=== PATIENT | male | born 1930 | race Caucasian/White ===

== ENCOUNTER 2016-11-26 20:07 | Observation (INO) | payer MEDICARE, MEDICAID ==
[2016-11-26 20:07] VITALS: PULSE 79
[2016-11-26 22:48] LABS: BASO % 0.7 % (0.0-2.0); EOS # 0.1 K/uL (0.0-0.7); EOS % 1.2 % (0.0-4.0); HEMOGLOBIN 13.4 g/dL (12.0-18.0); LYMPH # 1.2 K/uL (1.0-4.3); LYMPH % 18.7 % (20.0-40.0); MEAN CELL VOLUME 85.5 fL (80.0-94.0); MEAN CORPUSCULAR HGB CONC 33.9 g/dL (33.0-37.0); MEAN PLATELET VOLUME 7.7 fL (7.2-11.7); MONO # 0.5 K/uL (0.0-0.8); MONO % 8.3 % (0.0-10.0); NEUT # 4.7 K/uL (1.8-7.0); NEUT % 71.1 % (50.0-75.0); NRBC % 0.1 % (0.0-2.0); RBC 4.61 Mil/uL (4.40-5.90); WHITE BLOOD COUNT 6.6 K/uL (4.8-10.8)
[2016-11-26 22:56] LABS: ALBUMIN 4.5 g/dL (3.5-5.0)
[2016-11-26 22:57] LABS: INR 1.4; PROTHROMBIN TIME 16.2 SECONDS (9.7-12.2)
[2016-11-26 22:59] LABS: GFR AFRICAN-AMERICAN > 60; GFR NON-AFRICAN AMERICAN > 60
[2016-11-26 23:00] LABS: ALB/GLOB RATIO 1.1 (1.0-2.1); ALT/SGPT 14 U/L (21-72); AST/SGOT 32 U/L (17-59); BLOOD UREA NITROGEN 17 mg/dL (9-20)
[2016-11-26 23:08] LABS: B-TYPE NATRIURETIC PEPTIDE 282 pg/mL (0-900); CK-MB 1.81 ng/mL (0.0-3.38)
--- NOTE | 2016-11-26 23:38 | C.PDOC ---
Time Seen by Provider: 11/26/16 21:43 Chief Complaint (Nursing): Chest Pain History Per: Patient, Family Onset/Duration Of Symptoms: Sudden Onset (Just [employer] CUT[employer]) Current Symptoms Are (Timing): Better Severity: Moderate Quality: Pressure Associated Symptoms: Nausea, Dyspnea, Diaphoresis Modifying Factors: Other Indicated Below Nitro Therapy Administered: 1, Per Own Supply, Complete Relief Additional History Per: Prior Records Past Medical History Reviewed: Historical Data, Nursing Documentation, Vital Signs Vital Signs: Last Vital Signs Temp Pulse 70 11/26/16 20:19 Resp 16 11/26/16 20:19 BP 140/90 11/26/16 20:19 Pulse Ox 100 11/26/16 23:39 - Medical History PMH: Atrial Fibrillation, CAD, Diabetes, HTN - [facility] Procedures INTRAOPER CHOLANGIOGRAM (10/29/14) LAPAROSCOPIC CHOLECYSTECTOMY (10/29/14) Family History: States: Unknown Family Hx - Social History Hx Tobacco Use: No Hx Alcohol Use: No Hx Substance Use: No - Immunization History Hx Tetanus Toxoid Vaccination: No Hx Influenza Vaccination: Yes Hx Pneumococcal Vaccination: No Review Of Systems Except As Marked, All Systems Reviewed And Found Negative. Constitutional: Negative for: Fever, Weakness Cardiovascular: Positive for: Chest Pain Respiratory: Negative for: Hemoptysis Gastrointestinal: Negative for: Vomiting, Abdominal Pain Musculoskeletal: Negative for: Neck Pain, Back Pain, Leg Pain Skin: Negative for: Rash Neurological: Negative for: Weakness, Numbness, Seizures, Altered Mental Status Physical Exam - Physical Exam Appears: Non-toxic, No Acute Distress Skin: Normal Color, Warm, Dry, No Rash Head: Atraumatic, Normacephalic Eye(s): bilateral: PERRL, EOMI Neck: Normal ROM, Supple Cardiovascular: Rhythm Regular Respiratory: Normal Breath Sounds, No Accessory Muscle Use Gastrointestinal/Abdominal: Soft, No Tenderness Back: No CVA Tenderness Extremity: Normal ROM, No Pedal Edema, No Calf Tenderness Neurological/Psych: Oriented x3, Normal Motor, Normal Sensation ED Course And Treatment - Laboratory Results Result Diagrams: 11/26/16 22:43 11/26/16 22:43 Lab Interpretation: No Acute Changes ECG: Interpreted By Me, Viewed By Me ECG Rhythm: Atrial Fibrillation, Nonspecific Changes ECG Interpretation: No Changes From Prior Rate From EC O2 Sat by Pulse Oximetry: 100 Pulse Ox Interpretation: Normal - Radiology CXR: Interpreted by Me, Viewed By Me CXR Interpretation: Yes: No Acute Disease Reassessment Condition: Improved Progress - Interventions Interventions:: Observation, Oxygen - Medications Administered Oral: Aspirin - Data Reviewed Data Reviewed: Lab, Diagnostic imaging, EKG, Old records - Continuity of Care Discussed patient case with:: Patient, Family-HIPPA compliant, Covering for PMD Disposition Discussed With : Lisandro Almodovar Comment: He accepted pt on his service and gave admitting orders to the nurse. Doctor Will See Patient In The: Hospital Counseled Patient/Family Regarding: Studies Performed, Diagnosis - Disposition Disposition: HOSPITALIZED Disposition Time: 00:09 Condition: FAIR - Clinical Impression Clinical Impression: Chest pain
[2016-11-27 02:31] VITALS: RESP 20
[2016-11-27 05:41] LABS: CK-MB 1.51 ng/mL (0.0-3.38)
--- NOTE | 2016-11-27 07:36 | CP.PCM.CON ---
Addendum entered and electronically signed by Inocente Dyer DO 11/27/16 10:08: as Per Dr. Kemp We will recommend adding 30mg Imdur daily to the patients current regimen He will f/u w/ Dr. Adkins on Wednesday at 10am Thank you. Original Note: <Inocente Dyer - Last Filed: 11/27/16 09:23> History of Present Illness - History of Present Illness History of Present Illness: Dr. Inocente Dyer PGY2 Note for Cardiology for Dr. Kemp W/ Sample Cutter Services offered in the hospital CC: Chest pain and dizziness This patient is an 86yo M w/ a pmhx of DM2, HTN, HLD, CAD, A-Fibb rate controlled and CHF (unknown systolic or diastolic, most likely systolic) who is coming to the hospital after he had chest pain 8/3 at 7pm and dizziness. The patient states he has never had pain like this before that was associated with dizziness. The patient denies diaphoresis, or vomiting, Denies LOC. He states he had chest pain like this "many years ago" that was associated with an IN. He denies all other symptoms; denies DOHERTY, current CP, SOB, abdominal pain, N/V/D, fevers/chills, dysuria/freq/urg, or lower extremity pain/swelling. Cath: 2-3 years ago; reportedly normal as per patient; will need collateral information Echo done 9-10 months ago; reportedly normal as per patient; will need collateral information PMhx: DM2, HTN, HLD, CAD, A-Fibb PSurghx: Cholycystectomy 2 years ago, Cath 2 years ago which was reportedly normal FamHx: Mom with HTN and DM, no history of cancer in the family Allergies: None Meds: Aspirin, Digoxin, Gabapentin, Metformin, Metoprolol, Nitro Patch, Onglyza , Simvastatin, Xarelto, Zoldipem Social: Social hookah smoker, denies EtOH or other illicit drugs; lives at home ; normally able to ambulate as much as needs without walker or cane Review of Systems - Review of Systems Review of Systems: Negative to all below except for what is mentioned in HPI Past Patient History - Infectious Disease Hx of Infectious Diseases: None - Tetanus Immunizations Tetanus Immunization: Unknown - Past Medical History & Family History Past Medical History?: Yes - Past Social History Smoking Status: Never Smoked - CARDIAC Hx Cardiac Disorders: Yes Hx Atrial Fibrillation: Yes Hx Hypertension: Yes - PULMONARY Hx Respiratory Disorders: No - NEUROLOGICAL Hx Neurological Disorder: No - HEENT Hx HEENT Problems: Yes - RENAL Hx Chronic Kidney Disease: No - ENDOCRINE/METABOLIC Hx Endocrine Disorders: Yes Hx Diabetes Mellitus Type 2: Yes - HEMATOLOGICAL/ONCOLOGICAL Hx Blood Disorders: No - INTEGUMENTARY Hx Dermatological Problems: No - MUSCULOSKELETAL/RHEUMATOLOGICAL Hx Musculoskeletal Disorders: No Hx Falls: No - GASTROINTESTINAL Hx Gastrointestinal Disorders: No - GENITOURINARY/GYNECOLOGICAL Hx Genitourinary Disorders: No - PSYCHIATRIC Hx Psychophysiologic Disorder: No Hx Substance Use: No - SURGICAL HISTORY Hx Surgeries: Yes Other/Comment: Hernia. Hx of cardiac stent placement - ANESTHESIA Hx Anesthesia: Yes Meds Allergies/Adverse Reactions: Allergies Allergy/AdvReac Type Severity Reaction Status Date / Time No Known Allergies Allergy Verified 11/26/16 20:24 - Medications Medications: Current Medications Home Med (Aspirin) 81 mg PO DAILY [facility] Home Med (Daily Yelena) 1 tab PO DAILY [facility] Home Med (Daily Yelena) 1 tab PO DAILY [facility] Home Med (Digoxin) 250 mcg PO DAILY [facility] Home Med (Digoxin) 250 mcg PO DAILY [facility] Home Med (Gabapentin) 300 mg PO TID [facility] Home Med (Metformin Hcl) 500 mg PO BID [facility] Home Med (Metoprolol Succinate) 25 mg PO Q12 [facility] Home Med (Nitro-Dur 0.2 Mg/Hr Patch) 0.2 mg TOP DAILY [facility] Home Med (Onglyza) 5 mg PO DAILY [facility] Home Med (Simvastatin) 20 mg PO HS [facility] Home Med (Xarelto) 20 mg PO DAILY [facility] Home Med (Zolpidem) 5 mg PO HS [facility] Insulin Aspart (Novolog) 0 unit SC ACHS [facility] PRN Reason: Protocol Physical Exam - Constitutional Appears: Well, Non-toxic - Head Exam Head Exam: ATRAUMATIC - Eye Exam Eye Exam: EOMI - ENT Exam ENT Exam: Mucous Membranes Moist - Neck Exam Neck exam: Positive for: Full Rom. Negative for: Lymphadenopathy - Respiratory Exam Respiratory Exam: Clear to Auscultation Bilateral, NORMAL BREATHING PATTERN. absent: Rales, Rhonchi, Wheezes - Cardiovascular Exam Cardiovascular Exam: Irregular Rhythm (Irregularly Regular), +S1, +S2. absent: REGULAR RHYTHM, Rubs, Systolic Murmur - GI/Abdominal Exam GI & Abdominal Exam: Normal Bowel Sounds, Soft. absent: Tenderness - Rectal Exam Rectal Exam: Deferred - Extremities Exam Extremities exam: Positive for: full ROM, normal capillary refill, normal inspection. Negative for: calf tenderness, joint swelling, pedal edema - Back Exam Back exam: NORMAL INSPECTION. absent: CVA tenderness (L), CVA tenderness (R) - Neurological Exam Neurological exam: Alert, Oriented x3 - Psychiatric Exam Psychiatric exam: Normal Affect - Skin Skin Exam: Warm Results - Vital Signs Recent Vital Signs: Last Vital Signs Temp 98.1 F 11/27/16 05:40 Pulse 74 11/27/16 05:40 Resp 20 11/27/16 05:40 BP 123/70 11/27/16 05:40 Pulse Ox 98 11/27/16 05:40 - Labs Result Diagrams: 11/26/16 22:43 11/26/16 22:43 Labs: Laboratory Results - last 24 hr 11/27/16 11/27/16 05:11 06:18 POC Glucose (mg/dL) 82 Total Creatine Kinase 93 CK-MB (Mass) 1.51 Troponin I, Quant 0.0120 Assessment & Plan - Assessment and Plan (Free Text) Assessment: 86yo M admitted for Chest Pain Chest Pain -ROSA negative times 2 -Chest X-Ray does not show any PNA, pneumothorax or other acute finding -EKG shows A-fibb, rate controlled and on anticoagulation; patient is no longer symptomatic -CHADS-VASC2 score 6, HASBLED 3 -Will need collateral information for Cath and Echo done; if echo is more than 10mo old will consider doing outpatient echo. nothing to be done emergently HTN -c/w current management HLD -c/w current management A-Fibb/CAD/CHF unknown if systolic or diastolic -c/w current management -will obtain collateral information from office and order outpatient tests as needed Case discussed and seen in detail with Dr. Kemp We will be signing off the patient while inpatient Please feel free to consult PRN Thank you for this interesting consult Dr. Inocente Dyer PGY2 Cardiology <Berta Kemp - Last Filed: 11/27/16 10:19> Meds - Medications Medications: Current Medications Aspirin (Aspirin Chewable) 81 mg PO DAILY [facility] Digoxin (Lanoxin) 0.25 mg PO DAILY@1800 [facility] Gabapentin (Neurontin) 300 mg PO TID [facility] Heparin Sodium (Porcine) (Heparin) 5,000 units SC Q12 [facility] Home Med (Metoprolol Succinate) 25 mg PO Q12 [facility] Home Med (Xarelto) 20 mg PO DAILY [facility] Insulin Aspart (Novolog) 0 unit SC ACHS [facility] PRN Reason: Protocol Last Admin: 11/27/16 07:59 Dose: Not Given Metformin HCl (Glucophage) 500 mg PO BIDCC [facility] Multivitamins (Hexavitamin) 1 tab PO DAILY [facility] Nitroglycerin (Nitro-Dur 0.2 Mg/Hr Patch) 1 patch TD DAILY [facility] Rosuvastatin Calcium (Crestor) 5 mg PO HS [facility] Sitagliptin Phosphate (Januvia) 100 mg PO DAILY [facility] Zolpidem Tartrate (Ambien) 5 mg PO HS [facility] Results - Vital Signs Recent Vital Signs: Last Vital Signs Temp 98.0 F 11/27/16 08:59 Pulse 73 11/27/16 08:59 Resp 20 11/27/16 08:59 BP 133/66 11/27/16 08:59 Pulse Ox 96 11/27/16 08:59 - Labs Result Diagrams: 11/26/16 22:43 11/26/16 22:43 Labs: Laboratory Results - last 24 hr 11/27/16 11/27/16 05:11 06:18 POC Glucose (mg/dL) 82 Total Creatine Kinase 93 CK-MB (Mass) 1.51 Troponin I, Quant 0.0120 Attending/Attestation - Attestation I have personally seen and examined this patient.: Yes I have fully participated in the care of the patient.: Yes I have reviewed all pertinent clinical information: Yes Notes (Text): 11/27/16 10:18 Pt chart reviewed in office suggest Imdur follow up on Wednesday in office troponin negative
[2016-11-27] MEDS: (Novolog) Insulin Aspart, Recombinant 100 u/ml 10 ml vial SC SCH ×3 (07:59→17:29)
--- NOTE | 2016-11-27 08:27 | RAD ---
PROCEDURE: CHEST RADIOGRAPH, 1 VIEW HISTORY: chest pain COMPARISON: None available. FINDINGS: LUNGS: Clear. PLEURA: No pneumothorax or pleural fluid seen. CARDIOVASCULAR: Mild cardiomegaly is likely. Element of technical magnification is not completely excluded given from technique. Clinically correlate further. There is no pulmonary vascular derangement identified. OSSEOUS STRUCTURES: No significant abnormalities. VISUALIZED UPPER ABDOMEN: Normal. OTHER FINDINGS: None. IMPRESSION: No acute pulmonary disease. Cardiomegaly is noted. No pulmonary vascular derangement.
[2016-11-27 09:00] VITALS: BP 133/66; TEMP 98; O2SAT 96
[2016-11-27] MEDS ORDERED: Nitroglycerin 0.2 mg/hr Top Patch TD SCH (10:00)
[2016-11-27] MEDS ORDERED: ONGLYZA 5 MG PO SCH (10:00)
[2016-11-27] MEDS ORDERED: Multiple Vitamins Tab PO SCH (10:00)
[2016-11-27] MEDS ORDERED: DAILY VITE PO SCH (10:00)
[2016-11-27] MEDS ORDERED: DIGOXIN 250 MCG PO SCH (10:00)
[2016-11-27] MEDS ORDERED: METOPROLOL SUCCINATE 25 MG PO SCH ×2 (10:00→22:00)
[2016-11-27] MEDS ORDERED: XARELTO 20 MG PO SCH (10:00)
--- NOTE | 2016-11-27 12:52 | CARD ---
APPROVED REPORT EKG Measurement Heart [id number] <Conclusion> Atrial fibrillation Anterior infarct, age undetermined Abnormal ECG
--- NOTE | 2016-11-27 15:29 | CP.PCM.HP ---
Past Patient History - Infectious Disease Hx of Infectious Diseases: None - Tetanus Immunizations Tetanus Immunization: Unknown - Past Medical History & Family History Past Medical History?: Yes - Past Social History Smoking Status: Never Smoked - CARDIAC Hx Cardiac Disorders: Yes (A FIB, CAD) Hx Hypertension: Yes - PULMONARY Hx Respiratory Disorders: No - NEUROLOGICAL Hx Neurological Disorder: No - HEENT Hx HEENT Problems: Yes - RENAL Hx Chronic Kidney Disease: No - ENDOCRINE/METABOLIC Hx Diabetes Mellitus Type 2: Yes - HEMATOLOGICAL/ONCOLOGICAL Hx Blood Disorders: No - INTEGUMENTARY Hx Dermatological Problems: No - MUSCULOSKELETAL/RHEUMATOLOGICAL Hx Musculoskeletal Disorders: No Hx Falls: No - GASTROINTESTINAL Hx Gastrointestinal Disorders: No - GENITOURINARY/GYNECOLOGICAL Hx Genitourinary Disorders: No - PSYCHIATRIC Hx Psychophysiologic Disorder: No Hx Substance Use: No - SURGICAL HISTORY Hx Surgeries: Yes Other/Comment: Hernia. Hx of cardiac stent placement - ANESTHESIA Hx Anesthesia: Yes Meds Home Medications: Home Medication List Medication Instructions Recorded Confirmed Type Isosorbide Mononitrate [Imdur] 30 mg PO DAILY #30 tab 11/27/16 Rx Allergies/Adverse Reactions: Allergies Allergy/AdvReac Type Severity Reaction Status Date / Time No Known Allergies Allergy Verified 11/26/16 20:24 Results - Vital Signs Recent Vital Signs: Last Vital Signs Temp 98.0 F 11/27/16 08:59 Pulse 73 11/27/16 08:59 Resp 20 11/27/16 08:59 BP 133/66 11/27/16 08:59 Pulse Ox 96 11/27/16 08:59 - Labs Result Diagrams: 11/26/16 22:43 11/26/16 22:43 Labs: Laboratory Results - last 24 hr 11/27/16 11/27/16 11/27/16 05:11 06:18 11:13 POC Glucose (mg/dL) 82 Total Creatine Kinase 93 96 CK-MB (Mass) 1.51 1.60 Troponin I, Quant 0.0120 < 0.0120 11/27/16 11:22 POC Glucose (mg/dL) 93 Total Creatine Kinase CK-MB (Mass) Troponin I, Quant
[2016-11-27 16:10] VITALS: PULSE 91
--- NOTE | 2016-11-27 17:23 | CP.PCM.PN ---
Subjective - Date & Time of Evaluation Date of Evaluation: 11/27/16 Time of Evaluation: 15:00 - Subjective Subjective: Pt seen today , denies any chest pain, sob, palpitations, dizziness , N/V/D troponins x 3 - negative Objective - Vital Signs/Intake and Output Vital Signs (last 24 hours): Temp Pulse Resp BP Pulse Ox 98.0 F 91 H 20 133/66 96 11/27/16 08:59 11/27/16 12:30 11/27/16 08:59 11/27/16 08:59 11/27/16 08:59 Intake and Output: 11/27/16 11/27/16 06:59 18:59 Intake Total 110 350 Balance 110 350 - Medications Medications: Current Medications Aspirin (Aspirin Chewable) 81 mg PO DAILY [facility] Last Admin: 11/27/16 10:58 Dose: 81 mg Digoxin (Lanoxin) 0.25 mg PO DAILY@1800 [facility] Gabapentin (Neurontin) 300 mg PO TID [facility] Last Admin: 11/27/16 13:32 Dose: 300 mg Home Med (Metoprolol Succinate) 25 mg PO Q12 [facility] Home Med (Xarelto) 20 mg PO DAILY [facility] Insulin Aspart (Novolog) 0 unit SC ACHS [facility] PRN Reason: Protocol Last Admin: 11/27/16 12:30 Dose: Not Given Metformin HCl (Glucophage) 500 mg PO BIDCC [facility] Last Admin: 11/27/16 10:15 Dose: 500 mg Multivitamins (Hexavitamin) 1 tab PO DAILY [facility] Last Admin: 11/27/16 10:58 Dose: 1 tab Nitroglycerin (Nitro-Dur 0.2 Mg/Hr Patch) 1 patch TD DAILY [facility] Last Admin: 11/27/16 10:58 Dose: 1 patch Rosuvastatin Calcium (Crestor) 5 mg PO HS [facility] Sitagliptin Phosphate (Januvia) 100 mg PO DAILY [facility] Last Admin: 11/27/16 10:58 Dose: 100 mg Zolpidem Tartrate (Ambien) 5 mg PO HS [facility] - Labs Labs: PT 16.2 SECONDS (9.7-12.2) H 11/26/16 22:43 INR 1.4 11/26/16 22:43 APTT 35 SECONDS (21-34) H 11/26/16 22:43 Assessment and Plan - Assessment and Plan (Free Text) Assessment: A/P 86 yr old male admitted for chest pain ap x 3 - negative D/W Dr. Schroeder, cleared for discharge from cardiology standpoint an df/u wiht Dr. Adkins office and Dr. Longoria office D/W Dr. Almodovar, stable for discharge home today and f/u with Dr. Adkins office on wednesday Discharge plan discussed with son over phone , who understands and agrees with plan pt instructed to returns to ED if symptoms returns
[2016-11-27] MEDS ORDERED: Digoxin 250 mcg (0.25 mg) Tab PO SCH (18:00)
[2016-11-28] MEDS ORDERED: XARELTO 20 MG PO SCH (10:00)
== END 2016-11-27 17:41 | disposition home or self-care (01) ==
LOC: C.ER 20:07 → C.9E 11-27 00:09 → C.6T 11-27 05:15
PROVIDERS: ADMIT Internal Medicine Critical Care Medicine; ATTEND Internal Medicine Critical Care Medicine
DX: R07.89 Other chest pain (principal); E78.5 Hyperlipidemia, unspecified; I48.91 Unspecified atrial fibrillation; I25.10 Atherosclerotic heart disease of native coronary artery without angina pectoris; E11.9 Type 2 diabetes mellitus without complications
CPT/HCPCS: 71010; 80053; 80162; 82948; 83880; 84484; 85025; 85610; 85730; 93005; 97116; 97162; 99285; G0378; G8978; G8979; J1644

== ENCOUNTER 2017-06-26 10:25 | Emergency (ER) | payer MEDICARE, MEDICAID ==
[2017-06-26 10:25] VITALS: PULSE 79
[2017-06-26 10:36] VITALS: BMI 30.7
[2017-06-26 10:37] VITALS: PULSE 86; O2SAT 99
--- NOTE | 2017-06-26 11:32 | C.PDOC ---
Time Seen by Provider: 06/26/17 10:47 Chief Complaint (Nursing): ENT Problem History Per: Patient Onset/Duration Of Symptoms: Days (3), Gradual Current Symptoms Are (Timing): Still Present Location Of Pain: Throat Associated Symptoms: Sore Throat Severity: Moderate Additional History Per: Prior Records Past Medical History Reviewed: Historical Data, Nursing Documentation, Vital Signs Vital Signs: Last Vital Signs Temp 97.3 F L 06/26/17 10:35 Pulse 86 06/26/17 10:35 Resp 20 06/26/17 10:35 BP 112/73 06/26/17 10:35 Pulse Ox 99 06/26/17 10:35 - Medical History PMH: Atrial Fibrillation, CAD, Diabetes, HTN - [facility] Procedures INTRAOPER CHOLANGIOGRAM (10/29/14) LAPAROSCOPIC CHOLECYSTECTOMY (10/29/14) Family History: States: Unknown Family Hx - Social History Hx Tobacco Use: No Hx Alcohol Use: No Hx Substance Use: No - Immunization History Hx Tetanus Toxoid Vaccination: No Hx Influenza Vaccination: Yes Hx Pneumococcal Vaccination: No Review Of Systems Except As Marked, All Systems Reviewed And Found Negative. Constitutional: Negative for: Fever, Weakness ENT: Positive for: Throat Pain. Negative for: Ear Pain, Nose Congestion Cardiovascular: Negative for: Chest Pain Respiratory: Negative for: Cough, Shortness of Breath Gastrointestinal: Negative for: Vomiting, Abdominal Pain Musculoskeletal: Negative for: Neck Pain Skin: Negative for: Rash Neurological: Negative for: Weakness, Numbness Physical Exam - Physical Exam Appears: Non-toxic, No Acute Distress Skin: Normal Color, Warm, Dry, No Rash Head: Atraumatic, Normacephalic Eye(s): bilateral: Normal Inspection, PERRL, EOMI Oral Mucosa: Moist, No Drooling, No Trismus Throat: Erythema, No Exudate, No Drooling, No Mass Neck: Normal ROM, Supple Lymphatic: No Adenopathy Respiratory: Normal Breath Sounds, No Accessory Muscle Use, No Stridor Gastrointestinal/Abdominal: Soft, No Tenderness Extremity: Normal ROM Neurological/Psych: Oriented x3, Normal Speech, Normal Motor, Normal Sensation ED Course And Treatment O2 Sat by Pulse Oximetry: 99 Pulse Ox Interpretation: Normal Reassessment Condition: Improved Disposition Counseled Patient/Family Regarding: Diagnosis, Need For Followup, Rx Given - Disposition Referrals: Claudio Ward MD [Medical Doctor] - Disposition: HOME/ ROUTINE Disposition Time: 11:31 Condition: STABLE Additional Instructions: Follow up with your doctor within 2-3 days. Return to the ER if you develop fever, trouble breathing or swallowing, worsening of symptoms or if you have any other concerns. Prescriptions: Acetaminophen [Tylenol Extra Strength] 2 tab PO Q6 PRN #30 tablet PRN Reason: Pain, Moderate (4-7) Amoxicillin 875 mg PO BID #20 tab Instructions: Sore Throat, Adult (DC) - Clinical Impression Clinical Impression: Pharyngitis, acute
[2017-06-26 11:44] VITALS: BP 118/70; RESP 16; TEMP 98.2
== END 2017-06-26 11:42 | disposition home or self-care (01) ==
LOC: C.ER 10:25
DX: J02.9 Acute pharyngitis, unspecified (principal)

== ENCOUNTER 2017-10-13 02:03 | Emergency (ER) | payer MEDICARE, MEDICAID ==
[2017-10-13 02:03] VITALS: PULSE 79; BMI 30.7
[2017-10-13 02:19] VITALS: O2SAT 98
--- NOTE | 2017-10-13 02:20 | C.PDOC ---
History Of Present Illness 87 year old male presents to the ER with a complaint of lower abdominal pain that began today, associated with intermittent cramping. Patient notes his last bowel movement was 2 days ago. Denies nausea or vomiting. Chief Complaint (Nursing): Chest Pain History Per: Patient History/Exam Limitations: no limitations Onset/Duration Of Symptoms: Days Current Symptoms Are (Timing): Still Present Associated Symptoms: denies: Nausea, Dyspnea, Diaphoresis, Syncope Modifying Factors: None Exacerbating Factors: None Alleviating Factors: None Recent travel outside of the [place]: No Past Medical History Reviewed: Historical Data, Nursing Documentation, Vital Signs Vital Signs: Last Vital Signs Temp 97.9 F 10/13/17 02:09 Pulse 59 L 10/13/17 06:00 Resp 15 10/13/17 06:00 BP 128/65 10/13/17 06:00 Pulse Ox 98 10/13/17 06:50 - Medical History PMH: Atrial Fibrillation, CAD, Diabetes, HTN - [facility] Procedures INTRAOPER CHOLANGIOGRAM (10/29/14) LAPAROSCOPIC CHOLECYSTECTOMY (10/29/14) Family History: States: Unknown Family Hx - Social History Hx Tobacco Use: No Hx Alcohol Use: No Hx Substance Use: No - Immunization History Hx Tetanus Toxoid Vaccination: No Hx Influenza Vaccination: Yes Hx Pneumococcal Vaccination: No Review Of Systems Constitutional: Negative for: Fever, Chills Cardiovascular: Negative for: Chest Pain, Palpitations Respiratory: Negative for: Cough, Shortness of Breath Gastrointestinal: Positive for: Abdominal Pain, Constipation. Negative for: Nausea, Vomiting Genitourinary: Negative for: Dysuria, Hematuria Skin: Negative for: Rash Physical Exam - Physical Exam Appears: Non-toxic, Other (Mild distress) Skin: Normal Color, Warm, Dry Head: Atraumatic, Normacephalic Eye(s): bilateral: Normal Inspection Oral Mucosa: Moist Neck: Normal, Supple Chest: Symmetrical, No Tenderness Cardiovascular: Rhythm Regular Respiratory: Normal Breath Sounds, No Rales, No Rhonchi, No Wheezing Gastrointestinal/Abdominal: Soft, Tenderness (Bilateral lower quadrants), No Guarding, No Rebound Rectal: Other (Empty rectal vault) Back: No CVA Tenderness Neurological/Psych: Oriented x3, Normal Speech ED Course And Treatment - Laboratory Results Result Diagrams: 10/13/17 02:40 10/13/17 02:40 ECG: Interpreted By Me, Viewed By Me ECG Rhythm: Atrial Fibrillation ECG Interpretation: No Acute Changes, Abnormal Interpretation Of ECG: atrial fibrillation with junctional rhythmn Rate From EC O2 Sat by Pulse Oximetry: 98 (Room air) Pulse Ox Interpretation: Normal Progress Note: CT abd/pel, blood work, and urinalysis ordered. IV fluids and toradol administered. On reevaluation, patient reports improvement of pain. Disposition Counseled Patient/Family Regarding: Diagnosis - Disposition Referrals: [facility] [Outside] Disposition: HOME/ ROUTINE Disposition Time: 06:55 Condition: IMPROVED Prescriptions: Ciprofloxacin [Cipro] 1 tab PO BID #14 tab Docusate Sodium [Colace] 100 mg PO BID #20 capsule Instructions: Urinary Tract Infections in Adults, Constipation in Adults, High Fiber Diet Forms: [facility] (Syriac) - POA Present On Arrival: None - Clinical Impression Clinical Impression: Abdominal pain, Constipation, UTI (urinary tract infection) - Scribe Statement The provider has reviewed the documentation as recorded by the Scribe Keegan Lugo All medical record entries made by the Scribe were at my direction and personally dictated by me. I have reviewed the chart and agree that the record accurately reflects my personal performance of the history, physical exam, medical decision making, and the department course for this patient. I have also personally directed, reviewed, and agree with the discharge instructions and disposition.
[2017-10-13] MEDS ORDERED: Sodium Chloride 0.9% 1,000 ML IV ONE (02:34)
[2017-10-13] MEDS ORDERED: Iohexol 240 (50 ml) PO ONE (02:36)
[2017-10-13] MEDS ORDERED: Sodium Chloride 0.9% 1,000 ML ONE (02:43)
[2017-10-13 02:46] LABS: BASO # 0.1 K/uL (0.0-0.2); BASO % 0.8 % (0.0-2.0); EOS # 0.2 K/uL (0.0-0.7); EOS % 2.7 % (0.0-4.0); HEMOGLOBIN 13.3 g/dL (12.0-18.0); LYMPH % 24.4 % (20.0-40.0); MEAN CELL VOLUME 85.7 fL (80.0-94.0); MEAN CORPUSCULAR HEMOGLOBIN 29.7 pg (27.0-31.0); MEAN CORPUSCULAR HGB CONC 34.6 g/dL (33.0-37.0); MEAN PLATELET VOLUME 7.5 fL (7.2-11.7); MONO # 0.7 K/uL (0.0-0.8); MONO % 9.3 % (0.0-10.0); NEUT % 62.8 % (50.0-75.0); NRBC % 0.1 % (0.0-2.0); RBC 4.48 Mil/uL (4.40-5.90); RED CELL DISTRIBUTION WIDTH 14.2 % (11.5-14.5)
[2017-10-13 02:55] LABS: ALB/GLOB RATIO 1.2 (1.0-2.1); ALBUMIN 4.5 g/dL (3.5-5.0); ALT/SGPT 17 U/L (21-72); AST/SGOT 23 U/L (17-59); BLOOD UREA NITROGEN 17 mg/dL (9-20); CALCIUM 9.1 mg/dl (8.6-10.4); GFR AFRICAN-AMERICAN > 60; GFR NON-AFRICAN AMERICAN 57; LIPASE 212 U/L (23-300)
[2017-10-13] MEDS ORDERED: Iodixanol 320 MG/ML 100 ML BOTTLE IV ONE (04:23)
[2017-10-13 04:30] LABS: URINE BACTERIA RARE (<OCC); URINE BILIRUBIN NEGATIVE (NEGATIVE); URINE BLOOD 3+ (NEGATIVE); URINE CLARITY Hazy (Clear); URINE COLOR Amber (YELLOW); URINE GLUCOSE (UA) NORMAL (Normal); URINE LEUKOCYTE ESTERASE NEG Leu/uL (Negative); URINE PROTEIN 2+ mg/dL (NEGATIVE); URINE UROBILINOGEN NORMAL mg/dL (0.2-1.0); WBC CLUMPS FEW /hpf
[2017-10-13] MEDS ORDERED: Ciprofloxacin 400mg/200ml D5W 400 MG/200 ML BAG IVPB STA (06:15)
[2017-10-13] MEDS ORDERED: Ciprofloxacin 400mg/200ml D5W 400 MG/200 ML BAG IVPB ONE (06:24)
[2017-10-13 08:18] VITALS: BP 130/70; PULSE 61; RESP 20; TEMP 98.2
--- NOTE | 2017-10-13 12:25 | CT ---
PROCEDURE: CT abdomen pelvis dated 10/13/2017 HISTORY: Lower abdominal pain. COMPARISON: Comparison made with CT scan abdomen pelvis 10/29/2014 TECHNIQUE: Contiguous axial images of the abdomen and pelvis performed following oral and intravenous injection of approximately 100 cc Visipaque 320 contrast material. Additional 2D sagittal and coronal reformats generated. This CT exam was performed using one or more of the following dose reduction techniques: Automated exposure control, adjustment of the mA and/or kV according to patient size, and/or use of iterative reconstruction technique. Radiation dose: Total exam DLP = 531.88 mGy-cm. FINDINGS: LOWER THORAX: Heart is enlarged. No significant pericardial effusion. There is a small hiatal hernia with slight wall thickening of the distal esophagus likely due to protrusion of gastric mucosa however the possibility of esophagitis or other intrinsic/invasive wall lesion not excluded. LIVER: Liver exhibits normal size. Moderate diffuse fatty hepatic infiltration. No obvious hepatic mass collection or calcification. Portal and splenic veins are opacified. GALLBLADDER AND BILE DUCTS: Cholecystectomy. PANCREAS: Pancreas unremarkable without mass collection or calcification. No significant pancreatic ductal dilatation. SPLEEN: Spleen is mildly enlarged measuring nearly 14 cm in AP dimension. . There is a small approximately 5.7 mm elliptical shaped low-attenuation focus along the posterolateral surface of the splenic parenchyma which nonspecific though could represent small cyst or hemangioma although stable in size and appearance from prior exam ADRENALS: No adrenal lesions KIDNEYS AND URETERS: Kidneys demonstrate symmetric nephrograms. No evidence of nephrolithiasis or hydronephrosis. There is a small approximately 2.4 cm exophytic cyst lower pole left kidney. BLADDER: Urinary bladder is incompletely distended which may in part account for slight thick-walled appearance. Muscular hypertrophy presumably contributes. REPRODUCTIVE: Prostate gland measures approximately 3.7 cm in transverse dimension. APPENDIX: Appendix not seen with complete certainty however no obvious inflammatory changes right lower quadrant of the abdomen to suggest acute appendicitis. BOWEL: Evaluation of the bowel is somewhat limited due to incomplete opacification. The stomach is incompletely distended containing food debris liquid although poorly opacified with the liquid contrast. Visualized loops of small bowel exhibit normal contour and caliber. No evidence acute mechanical small bowel obstruction. There is a large amount of stool seen within the cecum ascending and to a slightly lesser degree transverse and less of the descending colon consistent with mild fecal retention/constipation. Scattered colonic diverticula again noted along the descending colon. There also appears to be a right-sided colonic diverticular along the posterolateral margin of the cecum. No definitive radiographic evidence of acute diverticulitis. PERITONEUM: Unremarkable. No fluid collection. No free air. Small fat containing umbilical hernia. LYMPH NODES: Slightly decrease size previously noted left pelvic lymph node measuring 12 mm. This measured approximately 17 mm on prior study. Few small nonspecific retroperitoneal lymph nodes. VASCULATURE: Unremarkable. No aortic aneurysm. 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 OTHER FINDINGS: None. IMPRESSION: Findings consistent with mild constipation. Diverticulosis without radiographic evidence of acute diverticulitis. Fatty hepatic infiltration. Mild splenomegaly. No change small low-attenuation focus along the posterolateral margin of the splenic capsule region. Exophytic cyst lower pole left kidney. See above discussion for additional details and findings.
--- NOTE | 2017-10-13 23:01 | CARD ---
APPROVED REPORT EKG Measurement Heart [id number] <Conclusion> Atrial fibrillation with a competing junctional pacemaker Abnormal ECG
== END 2017-10-13 08:18 | disposition home or self-care (01) ==
LOC: C.ER 02:03
DX: N39.0 Urinary tract infection, site not specified (principal); K59.00 Constipation, unspecified; R10.30 Lower abdominal pain, unspecified
CPT/HCPCS: 74177; 80053; 80162; 81001; 83690; 85025; 87086; 93005; 96365; 96375; 99285; J0744; J1885; J7030; Q9966; Q9967

== ENCOUNTER 2018-04-29 09:02 | Day surgery (SDC) | payer MEDICARE, MEDICAID ==
--- NOTE | 2018-04-29 08:57 | CP.SDSHP ---
Same Day Surgery H & P - History Proposed Procedure: colonoscopy - Previous Medical/Surgical History Cardiac: Hypertension, ASHD/CAD Endocrine/Metabolic: Diabetes Previous Surgical History: cholecystectomy - Allergies Allergies: Allergies No Known Allergies Allergy (Verified 06/26/17 10:34) - Date & Time Date: 04/29/18 Time: 08:57 Short Stay Discharge - Short Stay Discharge Admitting Diagnosis/Reason for Visit: GRAVES IN BOWEL HABITS Disposition: HOME/ ROUTINE
[2018-04-29 09:59] VITALS: TEMP 97.8
[2018-04-29] MEDS ORDERED: Propofol 10 mg/ml Inj (20 ML) ONE ×2 (11:34→11:59)
[2018-04-29] MEDS ORDERED: Lactated Ringer's 500 ML IV ONE (11:44)
[2018-04-29 12:33] VITALS: O2SAT 100
[2018-04-29 13:29] VITALS: BP 113/67; PULSE 77; RESP 15
== END 2018-04-29 13:25 | disposition home or self-care (01) ==
LOC: C.ENDO 09:02
PROVIDERS: ATTEND Colon & Rectal Surgery
DX: R19.4 Change in bowel habit (principal); K62.1 Rectal polyp; K57.30 Diverticulosis of large intestine without perforation or abscess without bleeding; K64.8 Other hemorrhoids
CPT/HCPCS: 45385; 82948; 88305; J2001; J2704; J7120